=== PATIENT | female | born 1950 | race Caucasian/White ===

== ENCOUNTER 2019-03-25 09:25 | Outpatient (CLI) | payer MEDICARE ==
[~2019-03-25 09:25] MED LIST: FENT1PAT76 TP; FLUO40CA9 PO; HYDR2TAB29 PO; METO5TAB57 PO; ONDA4TAB10 PO; PANT20TA2 PO; PROM25SU32; PROM25SU34 PO; PROM25TA10 PO
== END 2019-03-25 23:59 | disposition home or self-care (01) ==
LOC: CFH 09:25
PROVIDERS: ATTEND Nurse Practitioner Family
DX: Z12.31 Encounter for screening mammogram for malignant neoplasm of breast (principal); M81.0 Age-related osteoporosis without current pathological fracture
CPT/HCPCS: 77063; 77067; 77080

== ENCOUNTER 2019-05-03 08:27 | Outpatient (CLI) | END 2019-05-03 23:59 | disposition home or self-care (01) | LOC: CFH 08:27 | PROVIDERS: ATTEND Pathology Hematology | DX: D75.1 Secondary polycythemia (principal); R16.1 Splenomegaly, not elsewhere classified; Z90.49 Acquired absence of other specified parts of digestive tract; Z87.891 Personal history of nicotine dependence | CPT/HCPCS: 76700 ==

== ENCOUNTER 2020-11-28 13:32 | Emergency (ER) | payer MEDICARE ==
[~2020-11-28] VITALS: Ht 165.1 cm; Wt 61.2 kg
--- NOTE | 2020-11-28 14:00 | NUR ---
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 LINE MAINTENANCE ROLAND NOTIFIED OF PT VS AND PRESENTATION.
--- NOTE | 2020-11-28 14:08 | NUR ---
THIS IS A 70 YO F W/ C/O SOB X2 MONTHS WORSE W/ EXERTION AND INTERMITTENT COUGH X1 YEAR. PT REPORTS ONLY HX IS CYCLIC VOMITING (HAS NOT HAD EPISODE IN 5 YEARS) AND ARDS IN 1996. PER MANAGER HAIR, PT WAS 69% RA. PT NOW 97% 2L NC AT REST. OTHER VS WDL. PT RESTING ON GURNEY W/ CALL LIGHT IN REACH, FAMILY AT BEDSIDE AND SIDE RAILS UPX2. AWAITING ED EVAL.
[2020-11-28] MEDS ORDERED: ALBUTEROL/IPRATROPIUM 2.5MG/0.5MG, 3 ML NPPB ONE (15:30)
[2020-11-28 15:33] LABS: ALANINE AMINOTRANSFERASE 57 U/L (12-78); ALBUMIN 3.1 g/dL (3.4-5.0); ANION GAP 6 mmol/L (5-15); CALCIUM 8.9 mg/dL (8.5-10.1); CHLORIDE 107 mmol/L (98-107); CREATININE 0.79 mg/dL (0.55-1.02); MEAN CORPUSCULAR HEMOGLOBIN 27.3 pg (27.0-34.8); PLATELET COUNT 134 x10^3/uL (130-400); RED BLOOD COUNT 7.21 x10^6/uL (3.82-5.3); RED CELL DISTRIBUTION WIDTH 20.4 % (9.6-15.2)
[2020-11-28] MEDS ORDERED: ALBUTEROL/IPRATROPIUM 2.5MG/0.5MG, 3 ML ONE (15:36)
--- NOTE | 2020-11-28 15:40 | NUR ---
BREATHING TX SET UP.
[2020-11-28 15:41] LABS: ALKALINE PHOSPHATASE 75 U/L (45-117); BILIRUBIN,TOTAL 0.8 mg/dL (0.2-1.0); TOTAL PROTEIN 7.4 g/dL (6.4-8.2)
[2020-11-28 16:05] LABS: ANISOCYTOSIS 1+; EOS#(MANUAL) 0.04 x10^3/uL (0.0-0.4); EOS% (MANUAL) 1 % (1-7); LYMPHS% (MANUAL) 18 % (22-44); METAMYELOCYTES# (MANUAL) 0.04 x10^3/uL (0-0); METAMYELOCYTES% (MANUAL) 1 % (0-1); MONOS#(MANUAL) 0.08 x10^3/uL (0.3-2.7); MONOS% (MANUAL) 2 % (2-9); SEG#(MANUAL) 3.04 x10^3/uL (1.8-6.8); SEGS% (MANUAL) 78 % (42-75)
[2020-11-28 16:06] LABS: <PLATELET ESTIMATE> ADEQUATE; <PLT MORPHOLOGY> NORMAL PLT MORPH
--- NOTE | 2020-11-28 17:00 | NUR ---
PT DC FROM ED, WAITING IN ROOM FOR HOME O2 DELIVERY.
--- NOTE | 2020-11-28 18:20 | NUR ---
PT RESTING ON GURNEY W/ CALL LIGHT IN REACH AND SIDE RAILS UPX2. FAMILY AT BEDSIDE. VSS, [place]. AWAITING HOME O2.
--- NOTE | 2020-11-28 18:43 | NUR ---
REPORT RECEIVED FROM LEIDY ELI, PT CARE TRANSFERRED AT THIS TIME. NAD, APPEARS COMFORTABLE, DENIES ADDITIONAL QUESTIONS OR NEEDS AT THIS TIME. WCTM. WAITING FOR HOME O2.
--- NOTE | 2020-11-28 19:47 | NUR ---
HOME O2 COMPANY AT BS WITH INSTRUCTIONS FOR OPERATION FOR PT. PT NAD, TO BE DC'D WHEN THEY ARE DONE. AT BS. WCTM.
[2020-11-28 20:00] VITALS: BP 108/74
--- NOTE | 2020-11-28 20:02 | NUR ---
Patient/Spouse given discharge instructions and they have confirmed that they understand the instructions. Patient ambulatory with steady gait. NAD, all questions answered appropriately, denies additional needs at this time. No personal belongings left in room after discharge.
== END 2020-11-28 20:03 | disposition home or self-care (01) ==
LOC: ED 17:09
DX: J43.9 Emphysema, unspecified (principal); Z20.822 Contact with and (suspected) exposure to COVID-19; R09.02 Hypoxemia; Z87.891 Personal history of nicotine dependence; R94.31 Abnormal electrocardiogram [ECG] [EKG]; Z90.49 Acquired absence of other specified parts of digestive tract; Z90.710 Acquired absence of both cervix and uterus; Z88.0 Allergy status to penicillin
CPT/HCPCS: 36415; 71045; 80053; 83880; 85025; 93005; 94640; 99285; U0003; U0005

== ENCOUNTER → 2021-01-01 | Outpatient (CLI) | payer MEDICARE | END | disposition home or self-care (01) | LOC: RAD 09:49 | PROVIDERS: ATTEND Registered Nurse | DX: J43.2 Centrilobular emphysema (principal); J84.9 Interstitial pulmonary disease, unspecified; R91.8 Other nonspecific abnormal finding of lung field; J96.01 Acute respiratory failure with hypoxia; F11.20 Opioid dependence, uncomplicated; Z87.891 Personal history of nicotine dependence | CPT/HCPCS: 71250 ==